=== PATIENT | female | born 1945 | race American Indian/Alaskan Native ===

== ENCOUNTER 2016-09-18 07:24 | Day surgery (SDC) | payer MEDICARE, OTHER ==
[~2016-09-18 07:24] MED LIST: Polymyxin B/Trimethoprim 10 ML Bottle EYERT SCH
[2016-09-18] MEDS: Ofloxacin 0.3% Ophth Soln 5 ML Bottle EYERT SCH ×3 (07:47→09:23)
[2016-09-18] MEDS: Brimonidine 0.2% Ophth Soln 5 ML Bottle EYERT SCH ×4 (07:51→09:23)
[2016-09-18] MEDS: Phenylephrine 2.5% Ophth Soln 2 ML Bot EYERT SCH ×5 (07:55→09:09)
--- NOTE | 2016-09-18 07:59 | PCM.PREANE ---
Preanesthetic Assessment - Procedure Proposed Procedure: right eye catqrqct extraction with IOL - Anesthesia/Transfusion/Family Hx Anesthesia History: Prior Anesthesia Without Reaction Type of Anesthesia Reaction: Unknown Family History of Anesthesia Reaction: No Transfusion History: No Prior Transfusion(s) Type of Transfusion Reactions: Reports: Unknown Intubation History: Unknown - Review of Systems General: No Symptoms Pulmonary: Shortness of Breath (COPD uses inhalers daily) Cardiovascular: Other (Hyperlipidemia, HTN) Gastrointestinal: No symptoms Neurological: No Symptoms Other: Reports: Diabetes - Physical Assessment NPO Status Date: 09/17/16 NPO Status Time: 23:00 O2 Sat by Pulse Oximetry: 94 Respiratory Rate: 16 Vital Signs: Last Vital Signs Temp 36.4 C 09/18/16 07:35 Pulse 92 09/18/16 07:35 Resp 16 09/18/16 07:35 BP 163/76 H 09/18/16 07:35 Pulse Ox 94 L 09/18/16 07:35 Height: 1.7 m Weight: 104.326 kg Mental Status: Alert & Oriented x3 Dentition: Reports: Partial (upper and lower ) Thyro-Mental Finger Breadths: 3 Mouth Opening Finger Breadths: 3 ROM/Head Extension: Full Lungs: Clear to auscultation, Normal respiratory effort Cardiovascular: Regular Rate, Regular Rhythm - Allergies Allergies/Adverse Reactions: Allergies Allergy/AdvReac Type Severity Reaction Status Date / Time adhesive tape Allergy Cannot Verified 09/17/16 15:44 Remember nitrofurantoin Allergy Cannot Verified 09/17/16 15:44 [From Macrobid] Remember Sulfa (Sulfonamide Allergy Cannot Verified 09/17/16 15:44 Antibiotics) Remember - Blood Blood Available: No Product(s) Available: None - Acknowledgements Anesthesia Type Planned: MAC Pt an Appropriate Candidate for the Planned Anesthesia: Yes Alternatives and Risks of Anesthesia Discussed w Pt/Guardian: Yes Pt/Guardian Understands and Agrees with Anesthesia Plan: Yes PreAnesthesia Questionnaire - SUBSTANCE USE Smoking Status *Q: Former Smoker (quit 2014) Second Hand Smoke Exposure: No Recreational Drug Use History: No - HOME MEDS Home Medications: Home Meds Enalapril Maleate [Vasotec] 20 mg PO DAILY 09/17/16 [History] Furosemide [Lasix] 40 mg PO DAILY 09/17/16 [History] Insulin Aspart [NovoLOG] 35 units SQ TID 09/17/16 [History] Insulin Detemir [Levemir] 80 units SQ BID 09/17/16 [History] amLODIPine [Norvasc] 5 mg PO DAILY 09/17/16 [History] atorvaSTATin [Lipitor] 10 mg PO BEDTIME 09/17/16 [History] diphenhydrAMINE [Benadryl] 25 mg PO DAILY 09/17/16 [History] - CURRENT (IN HOUSE) MEDS Current Meds: Current Medications Brimonidine Tartrate (Alphagan 0.2% Ophth Soln) 0 ml EYERT ASDIRECTED DELANEY Last Admin: 09/18/16 07:51 Dose: 1 drop Cefuroxime Sodium (Zinacef) 0 mg EYERT ASDIRECTED DELANEY Stop: 09/18/16 18:00 Lidocaine HCl (Xylocaine-Mpf 1%) 10 ml INJECT ASDIRECTED DELANEY Stop: 09/18/16 18:00 Ofloxacin (Ocuflox 0.3% Ophth Soln) 0 ml EYERT ASDIRECTED DELANEY Stop: 09/18/16 18:00 Last Admin: 09/18/16 07:47 Dose: 1 drop Phenylephrine HCl (Salo-Synephrine 2.5% Ophth Soln) 0 ml EYERT ASDIRECTED DELANEY Stop: 09/18/16 18:00 Pilocarpine HCl (Pilocar 4% Ophth Soln) 0 ml EYERT ASDIRECTED DELANEY Stop: 09/18/16 18:00 Tetracaine HCl (Tetracaine 0.5% Steri-Unit Nina) 0 ml EYERT ASDIRECTED DELANEY Stop: 09/18/16 18:00 Tropicamide (Mydriacyl 1% Ophth Soln) 0 ml EYERT ASDIRECTED DELANEY Stop: 09/18/16 18:00 Discontinued Medications Polymyxin/Trimethoprim Sulfate (Polytrim Ophth Soln) 0 ml EYERT ASDIRECTED DELANEY Stop: 09/18/16 18:00
[2016-09-18] MEDS: Lidocaine 1% PF 2 ML SDV INJECT SCH ×2 (08:06→09:14)
[2016-09-18] MEDS: Tetracaine HCl/PF 0.5% 4 ML Bottle EYERT SCH ×3 (08:06→09:15)
[2016-09-18] MEDS: Cefuroxime 10 MG/ML SYRINGE EYERT SCH ×2 (08:07→09:20)
[2016-09-18] MEDS: Pilocarpine 4% Ophth Soln 15 ML Bot EYERT SCH ×2 (08:08→09:23)
--- NOTE | 2016-09-18 09:31 | PCM48HPAN ---
Post Anesthesia Note - EVALUATION WITHIN 48HRS OF ANESTHETIC Vital Signs in Normal Range: Yes Patient Participated in Evaluation: Yes Respiratory Function Stable: Yes Airway Patent: Yes Cardiovascular Function Stable: Yes Hydration Status Stable: Yes Pain Control Satisfactory: Yes Nausea and Vomiting Control Satisfactory: Yes Mental Status Recovered: Yes
[2016-09-18 09:40] VITALS: BP 164/74
== END 2016-09-18 09:35 | disposition home or self-care (01) ==
LOC: JD.SDS 07:24 → MERGE 09:30 → JD.SDS 09:35
PROVIDERS: ATTEND Ophthalmology
DX: H26.9 Unspecified cataract (principal); I10 Essential (primary) hypertension; E78.00 Pure hypercholesterolemia, unspecified; E11.9 Type 2 diabetes mellitus without complications; Z79.4 Long term (current) use of insulin; Z79.899 Other long term (current) drug therapy; Z87.891 Personal history of nicotine dependence; Z98.890 Other specified postprocedural states
CPT/HCPCS: 66984; A9270; J0697; C1780

== ENCOUNTER 2016-10-16 07:12 | Day surgery (SDC) | payer MEDICARE, OTHER ==
[~2016-10-16 07:12] MED LIST changes: +Cefuroxime 10 MG/ML SYRINGE EYELF SCH; +Lidocaine 1% PF 2 ML SDV INJECT SCH; +Pilocarpine 4% Ophth Soln 15 ML Bot EYELF SCH; +Polymyxin B/Trimethoprim 10 ML Bottle EYELF SCH; -Polymyxin B/Trimethoprim 10 ML Bottle EYERT SCH
[2016-10-16] MEDS: Ofloxacin 0.3% Ophth Soln 5 ML Bottle EYELF SCH ×3 (07:20→08:31)
[2016-10-16] MEDS: Brimonidine 0.2% Ophth Soln 5 ML Bottle EYELF SCH ×3 (07:23→08:31)
[2016-10-16] MEDS: Phenylephrine 2.5% Ophth Soln 2 ML Bot EYELF SCH ×5 (07:27→08:07)
--- NOTE | 2016-10-16 07:34 | PCM.PREANE ---
Preanesthetic Assessment - Anesthesia/Transfusion/Family Hx Anesthesia History: Prior Anesthesia Without Reaction Family History of Anesthesia Reaction: No Transfusion History: No Prior Transfusion(s) Type of Transfusion Reactions: Reports: Unknown Intubation History: Unknown - Review of Systems General: No Symptoms Pulmonary: No Symptoms, Cough (pt states has had a cold, feels it is getting better finally) Cardiovascular: No Symptoms Gastrointestinal: No symptoms Neurological: No Symptoms Other: Reports: None - Physical Assessment NPO Status Date: 10/15/16 NPO Status Time: 21:00 Pulse: 99 O2 Sat by Pulse Oximetry: 96 Respiratory Rate: 16 Blood Pressure: 159/63 Temperature: 97.4 C Height: 1.7 m Weight: 104.326 kg ASA Class: 2 Mental Status: Alert & Oriented x3 Airway Class: Mallampati = 2 Dentition: Reports: Normal Dentition, Partial (upper and lower partial) Thyro-Mental Finger Breadths: 2 Mouth Opening Finger Breadths: 3 ROM/Head Extension: Full Lungs: Clear to auscultation, Normal respiratory effort Cardiovascular: Regular Rate, Regular Rhythm - Allergies Allergies/Adverse Reactions: Allergies Allergy/AdvReac Type Severity Reaction Status Date / Time adhesive tape Allergy Cannot Verified 10/15/16 13:54 Remember nitrofurantoin Allergy Cannot Verified 10/15/16 13:54 [From Macrobid] Remember Sulfa (Sulfonamide Allergy Cannot Verified 10/15/16 13:54 Antibiotics) Remember - Anesthesia Plan Pre-Op Medication Ordered: None - Acknowledgements Anesthesia Type Planned: MAC Pt an Appropriate Candidate for the Planned Anesthesia: Yes Alternatives and Risks of Anesthesia Discussed w Pt/Guardian: Yes Pt/Guardian Understands and Agrees with Anesthesia Plan: Yes PreAnesthesia Questionnaire HEENT History: Reports: None Cardiovascular History: Reports: High Cholesterol, Hypertension Respiratory History: Reports: None Gastrointestinal History: Reports: None Genitourinary History: Reports: None [employer] History: Reports: None Musculoskeletal History: Reports: None Neurological History: Reports: None Psychiatric History: Reports: None Endocrine/Metabolic History: Reports: Diabetes, Type I (BS 139 @ 0700) Hematologic History: Reports: None Immunologic History: Reports: None Oncologic (Cancer) History: Reports: None Dermatologic History: Reports: None - Past Surgical History Head Surgeries/Procedures: Reports: None HEENT Surgical History: Reports: None Cardiovascular Surgical History: Reports: None Respiratory Surgical History: Reports: None GI Surgical History: Reports: None, Cholecystectomy (no anesthetic complications ) Female Surgical History: Reports: None Male Surgical History: Reports: None Endocrine Surgical History: Reports: None Neurological Surgical History: Reports: None Musculoskeletal Surgical History: Reports: None Oncologic Surgical History: Reports: None Dermatological Surgical History: Reports: None - Past Imaging History Past Imaging History: Reports: Mammogram - SUBSTANCE USE Smoking Status *Q: Former Smoker (quit 2014) Second Hand Smoke Exposure: No Recreational Drug Use History: No - HOME MEDS Home Medications: Home Meds Enalapril Maleate [Vasotec] 20 mg PO DAILY 09/17/16 [History] Furosemide [Lasix] 40 mg PO DAILY 09/17/16 [History] Insulin Aspart [NovoLOG] 35 units SQ TID 09/17/16 [History] Insulin Detemir [Levemir] 80 units SQ BID 09/17/16 [History] amLODIPine [Norvasc] 5 mg PO DAILY 09/17/16 [History] atorvaSTATin [Lipitor] 10 mg PO BEDTIME 09/17/16 [History] diphenhydrAMINE [Benadryl] 25 mg PO DAILY 09/17/16 [History] Moxifloxacin [Vigamox 0.5% Ophth Soln] 1 drop EYEBOTH ASDIRECTED 10/15/16 [ History] - CURRENT (IN HOUSE) MEDS Current Meds: Current Medications Brimonidine Tartrate (Alphagan 0.2% Ophth Soln) 0 ml EYELF TID DELANEY Stop: 10/16/16 16:00 Last Admin: 10/16/16 07:23 Dose: 1 drop Cefuroxime Sodium (Zinacef) 0 mg EYELF ASDIRECTED DELANEY Stop: 10/16/16 18:00 Lidocaine HCl (Xylocaine-Mpf 1%) 10 ml INJECT ASDIRECTED DELANEY Stop: 10/16/16 18:00 Ofloxacin (Ocuflox 0.3% Ophth Soln) 0 ml EYELF ASDIRECTED DELANEY Stop: 10/16/16 16:00 Last Admin: 10/16/16 07:20 Dose: 1 drop Phenylephrine HCl (Salo-Synephrine 2.5% Ophth Soln) 0 ml EYELF ASDIRECTED DELANEY Stop: 10/16/16 16:00 Last Admin: 10/16/16 07:27 Dose: 1 drop Pilocarpine HCl (Pilocar 4% Ophth Soln) 0 ml EYELF ASDIRECTED DELANEY Stop: 10/16/16 16:00 Tetracaine HCl (Tetracaine 0.5% Steri-Unit Nina) 0 ml EYELF ASDIRECTED DELANEY Stop: 10/16/16 16:00 Tropicamide (Mydriacyl 1% Ophth Soln) 0 ml EYELF ASDIRECTED DELANEY Stop: 10/16/16 16:00
[2016-10-16] MEDS: Tetracaine HCl/PF 0.5% 4 ML Bottle EYELF SCH ×2 (08:03→08:19)
[2016-10-16 08:43] VITALS: BP 161/70
== END 2016-10-16 08:39 | disposition home or self-care (01) ==
LOC: JD.SDS 07:12
PROVIDERS: ATTEND Ophthalmology
DX: H26.9 Unspecified cataract (principal); H21.81 Floppy iris syndrome; H21.42 Pupillary membranes, left eye; I10 Essential (primary) hypertension; E78.00 Pure hypercholesterolemia, unspecified; E11.9 Type 2 diabetes mellitus without complications; Z88.2 Allergy status to sulfonamides; Z88.8 Allergy status to other drugs, medicaments and biological substances; Z91.09 Other allergy status, other than to drugs and biological substances; Z79.4 Long term (current) use of insulin; Z79.899 Other long term (current) drug therapy; Z98.890 Other specified postprocedural states; Z87.891 Personal history of nicotine dependence
CPT/HCPCS: 66984; C1780; J0697; A9270-GY

== ENCOUNTER 2020-11-17 20:44 | Emergency (ER) | payer MEDICARE, OTHER ==
[2020-11-17] MEDS ORDERED: Sodium Chloride 0.9% 10 ML Syringe FLUSH PRN (21:08)
[2020-11-17] MEDS ORDERED: Ondansetron 4 MG/2 ML SDV IVPUSH ONE (21:08)
[2020-11-17] MEDS ORDERED: methylPREDNISolone Sodium Succinate 125 MG/2 ML SDV IVPUSH PRN (21:09)
[2020-11-17] MEDS ORDERED: EPINEPHrine 1 MG/ML SDV IM PRN (21:09)
[2020-11-17] MEDS ORDERED: Famotidine 20 MG/2 ML SDV IVPUSH PRN (21:09)
[2020-11-17] MEDS ORDERED: diphenhydrAMINE 50 MG/ML SDV IVPUSH PRN (21:09)
[2020-11-17] MEDS ORDERED: Sodium Chloride 0.9% 10 ML Syringe FLUSH SCH (21:15)
--- NOTE | 2020-11-17 22:33 | EDM.PDOC ---
ED HPI GENERAL MEDICAL PROBLEM - General Chief Complaint: Gastrointestinal Problem Stated Complaint: [facility] Time Seen by Provider: 11/17/20 20:50 Source of Information: Reports: Patient, EMS History Limitations: Reports: No Limitations - History of Present Illness INITIAL COMMENTS - FREE TEXT/NARRATIVE: The patient presents by [facility] for nausea, vomiting, diarrhea, cough and shortness of breath. She has COVID 19. She was diagnosed today. She has been having symptoms for a few days. She did get the [place] vaccine earlier in the year. She has no chest pain or abdominal pain. She does have heart disease and hypertension. Onset: Gradual Duration: Day(s): Severity: Moderate Improves with: Reports: None Worsens with: Reports: None Associated Symptoms: Reports: Cough, Fever/Chills, Nausea/Vomiting, Shortness of Breath. Denies: Chest Pain, Headaches Treatments GLASS FITTER: Reports: Isotonic Fluid, IV/IO Other Treatments GLASS FITTER: 600ml NS given by EMS GLASS FITTER - Related Data Allergies Allergy/AdvReac Type Severity Reaction Status Date / Time adhesive tape Allergy Cannot Verified 11/17/20 20:53 Remember nitrofurantoin Allergy Cannot Verified 11/17/20 20:53 [From Macrobid] Remember Sulfa (Sulfonamide Allergy Cannot Verified 11/17/20 20:53 Antibiotics) Remember Home Meds: Home Meds Enalapril Maleate [Vasotec] 20 mg PO DAILY 09/17/16 [History] Furosemide [Lasix] 40 mg PO DAILY 09/17/16 [History] Insulin Aspart [NovoLOG] 35 units SQ TID 09/17/16 [History] Insulin Detemir [Levemir] 80 units SQ BID 09/17/16 [History] amLODIPine [Norvasc] 5 mg PO DAILY 09/17/16 [History] atorvaSTATin [Lipitor] 10 mg PO BEDTIME 09/17/16 [History] diphenhydrAMINE [Benadryl] 25 mg PO BEDTIME 09/17/16 [History] Ondansetron [Zofran ODT] 4 mg PO Q6H PRN #20 tab.dis 11/17/20 [Rx] Past Medical History HEENT History: Reports: None Cardiovascular History: Reports: High Cholesterol, Hypertension Respiratory History: Reports: None Gastrointestinal History: Reports: None Genitourinary History: Reports: None HOME SUPERVISOR History: Reports: Musculoskeletal History: Reports: None Neurological History: Reports: None Psychiatric History: Reports: None Endocrine/Metabolic History: Reports: Diabetes, Type I, Obesity/BMI 30+ Hematologic History: Reports: None Immunologic History: Reports: None Oncologic (Cancer) History: Reports: None Dermatologic History: Reports: None - Infectious Disease History Infectious Disease History: Reports: C-Difficile, Mumps, Novel Coronavirus, Shingles - Past Surgical History GI Surgical History: Reports: Cholecystectomy Female Surgical History: Reports: None Neurological Surgical History: Reports: None - Past Imaging History Past Imaging History: Reports: Mammogram Social & Family History - Tobacco Use Tobacco Use Status *Q: Former Tobacco User Used Tobacco, but Quit: Yes Month/Year Tobacco Last Used: 04/2014 - Caffeine Use Caffeine Use: Reports: None - Recreational Drug Use Recreational Drug Use: No ED ROS GENERAL - Review of Systems Review Of Systems: See Below Constitutional: Reports: Fever, Chills, Malaise, Weakness, Fatigue HEENT: Reports: No Symptoms Respiratory: Reports: Shortness of Breath, Cough Cardiovascular: Reports: No Symptoms Endocrine: Reports: No Symptoms GI/Abdominal: Reports: Diarrhea, Nausea, Vomiting. Denies: Abdominal Pain ED EXAM, GI/ABD - Physical Exam Exam: See Below Exam Limited By: No Limitations General Appearance: Alert, No Apparent Distress Ears: Normal External Exam Nose: Normal Inspection Head: Atraumatic, Normocephalic Neck: Normal Inspection Respiratory/Chest: No Respiratory Distress, Lungs Clear, Normal Breath Sounds Cardiovascular: Regular Rate, Rhythm, No Edema, No Murmur GI/Abdominal Exam: Soft, Non-Tender, No Organomegaly, No Mass Course - Vital Signs Last Recorded V/S: Last Vital Signs Temp 98.8 F 11/17/20 22:00 Pulse 88 11/17/20 22:37 Resp 31 H 11/17/20 22:37 BP 149/60 H 11/17/20 22:37 Pulse Ox 91 L 11/17/20 22:37 - Orders/Labs/Meds Orders: Active Orders 24 hr Category Date Time Status Cardiac Monitoring [RC] . DIRECTED Care 11/17/20 21:08 Active Oxygen Therapy [RC] PRN Care 11/17/20 21:09 Active Peripheral IV Care [RC] . DIRECTED Care 11/17/20 21:09 Active Vital Signs [RC] Q15M Care 11/17/20 21:09 Active Chest 1V Frontal [CR] Stat Exams 11/17/20 21:09 Taken EPINEPHrine [Adrenalin] Med 11/17/20 21:09 Active 0.3 mg IM ONETIME PRN Famotidine [Pepcid] Med 11/17/20 21:09 Active 20 mg IVPUSH ONETIME PRN Sodium Chloride 0.9% [Saline Flush] Med 11/17/20 21:08 Active 10 ml FLUSH ASDIRECTED PRN Sodium Chloride 0.9% [Saline Flush] Med 11/17/20 21:15 Active 30 ml FLUSH ASDIRECTED diphenhydrAMINE [Benadryl] Med 11/17/20 21:09 Active 50 mg IVPUSH ONETIME PRN methylPREDNISolone Sod Succ [Solu-MEDROL] Med 11/17/20 21:09 Active 125 mg IVPUSH ONETIME PRN ED Antiemetic Medication Reflex [OM.PC] Stat Oth 11/17/20 21:09 Ordered Peripheral IV Insertion Adult [OM.PC] Stat Oth 11/17/20 21:08 Ordered Medication Orders Diphenhydramine HCl (Diphenhydramine 50 Mg/Ml Sdv) 50 mg IVPUSH ONETIME PRN PRN Reason: hypersensitivity reaction Epinephrine HCl (Epinephrine 1 Mg/Ml Sdv) 0.3 mg IM ONETIME PRN PRN Reason: hypersensitivity reaction Famotidine (Famotidine 20 Mg/2 Ml Sdv) 20 mg IVPUSH ONETIME PRN PRN Reason: hypersensitivity reaction Methylprednisolone Sodium Succinate (Methylprednisolone Sodium Succinate 125 Mg/2 Ml Sdv) 125 mg IVPUSH ONETIME PRN PRN Reason: hypersensitivity reaction Sodium Chloride (Sodium Chloride 0.9% 10 Ml Syringe) 10 ml FLUSH ASDIRECTED PRN PRN Reason: Keep Vein Open Sodium Chloride (Sodium Chloride 0.9% 10 Ml Syringe) 30 ml FLUSH ASDIRECTED DELANEY Labs: Laboratory Tests 11/17/20 11/17/20 Range/Units 21:20 21:20 WBC 6.10 (3.98-10.04) K/mm3 RBC 4.27 (3.98-5.22) M/mm3 Hgb 13.1 (11.2-15.7) gm/dl Hct 39.9 (34.1-44.9) % MCV 93.4 (79.4-94.8) fl MCH 30.7 (25.6-32.2) pg MCHC 32.8 (32.2-35.5) g/dl RDW Std Deviation 45.1 (36.4-46.3) fL Plt Count 136 L (182-369) K/mm3 MPV 10.3 (9.4-12.3) fl Neut % (Auto) 73.6 H (34.0-71.1) % Lymph % (Auto) 15.6 L (19.3-51.7) % Maury % (Auto) 9.8 (4.7-12.5) % Eos % (Auto) 0.8 (0.7-5.8) Baso % (Auto) 0.2 (0.1-1.2) % Neut # (Auto) 4.49 (1.56-6.13) K/mm3 Lymph # (Auto) 0.95 L (1.18-3.74) K/mm3 Maury # (Auto) 0.60 H (0.24-0.36) K/mm3 Eos # (Auto) 0.05 (0.04-0.36) K/mm3 Baso # (Auto) 0.01 (0.01-0.08) K/mm3 Sodium 140 (136-145) mEq/L Potassium 4.7 (3.5-5.1) mEq/L Chloride 106 (98-107) mEq/L Carbon Dioxide 22 (21-32) mEq/L Anion Gap 16.7 H (5-15) BUN 36 H (7-18) mg/dL Creatinine 1.6 H (0.55-1.02) mg/dL Est Cr Clr Drug Dosing 28.88 mL/min Estimated GFR (MDRD) 32 (>60) mL/min BUN/Creatinine Ratio 22.5 H (14-18) Glucose 105 H (70-99) mg/dL Calcium 8.3 L (8.5-10.1) mg/dL Total Bilirubin 0.5 (0.2-1.0) mg/dL AST 25 (15-37) U/L ALT 33 (14-59) U/L Alkaline Phosphatase 89 (46-116) U/L C-Reactive Protein 4.6 H* (<1.0) mg/dL Total Protein 6.9 (6.4-8.2) g/dl Albumin 2.9 L (3.4-5.0) g/dl Globulin 4.0 gm/dL Albumin/Globulin Ratio 0.7 L (1-2) Meds: Medications Generic Name Dose Route Start Last Admin Trade Name Miguelq PRN Reason Stop Dose Admin Diphenhydramine HCl 50 mg 11/17/20 21:09 Diphenhydramine 50 Mg/Ml Sdv IVPUSH ONETIME PRN hypersensitivity reaction Epinephrine HCl 0.3 mg 11/17/20 21:09 Epinephrine 1 Mg/Ml Sdv IM ONETIME PRN hypersensitivity reaction Famotidine 20 mg 11/17/20 21:09 Famotidine 20 Mg/2 Ml Sdv IVPUSH ONETIME PRN hypersensitivity reaction Methylprednisolone Sodium Succinate 125 mg 11/17/20 21:09 Methylprednisolone Sodium Succinate 125 Mg/2 Ml Sdv IVPUSH ONETIME PRN hypersensitivity reaction Sodium Chloride 10 ml 11/17/20 21:08 Sodium Chloride 0.9% 10 Ml Syringe FLUSH ASDIRECTED PRN Keep Vein Open Sodium Chloride 30 ml 11/17/20 21:15 Sodium Chloride 0.9% 10 Ml Syringe FLUSH ASDIRECTED DELANEY Discontinued Medications Generic Name Dose Route Start Last Admin Trade Name Freq PRN Reason Stop Dose Admin CASIRIVIMAB/IMDEVIMAB 10 ml/ 110 mls @ 220 mls/hr 11/17/20 21:09 11/17/20 21:59 Sodium Chloride IV 11/17/20 21:38 220 mls/hr ONETIME ONE Administration Ondansetron HCl 4 mg 11/17/20 21:08 11/17/20 21:58 Ondansetron 4 Mg/2 Ml Sdv IVPUSH 11/17/20 21:09 4 mg ONETIME ONE Administration - Re-Assessments/Exams Free Text/Narrative Re-Assessment/Exam: 11/17/20 23:08 I ordered an IV saline lock, labs, zofran 4mg IV, CXR and REGEN-COV. Her CXR looks good. Her CBC looks good. Her anion gap was elevated at 16.7. Her creatinine was elevated at 1.6. Her CRP was elevated at 4.6. Her oxygen saturations were above 90% here. I will discharge her home with some zofran. Departure - Departure Time of Disposition: 23:10 Disposition: Home, Self-Care 01 Condition: Good Clinical Impression: COVID Nausea & vomiting Qualifiers: Vomiting type: unspecified Vomiting Intractability: non-intractable Qualified Code(s): R11.2 - Nausea with vomiting, unspecified - Discharge Information *PRESCRIPTION DRUG MONITORING PROGRAM REVIEWED*: Not Applicable *COPY OF PRESCRIPTION DRUG MONITORING REPORT IN PATIENT INDRA: Not Applicable Prescriptions: Ondansetron [Zofran ODT] 4 mg PO Q6H PRN #20 tab.dis PRN Reason: Nausea\vomiting Referrals: Ema Howard STAGE BUILDER [Primary Care Provider] - Forms: ED Department Discharge Additional Instructions: Drink plenty of fluids. Take the zofran every 6 hours as needed for nausea and vomiting. Take tylenol or motrin as needed for pain and fever. Please return if you are worse. Sepsis Event Note (ED) - Evaluation Sepsis Screening Result: Possible Sepsis Risk - Focused Exam Vital Signs: Vital Signs Temp Pulse Resp BP Pulse Ox 11/17/20 22:37 88 31 H 149/60 H 91 L 11/17/20 22:16 91 20 154/58 H 92 L 11/17/20 22:00 98.8 F 91 19 151/73 H 93 L 11/17/20 20:49 98.4 F 95 16 191/62 H 93 L - My Orders Last 24 Hours: My Active Orders 11/17/20 21:08 Cardiac Monitoring [RC] . DIRECTED Sodium Chloride 0.9% [Saline Flush] 10 ml FLUSH ASDIRECTED PRN Peripheral IV Insertion Adult [OM.PC] Stat 11/17/20 21:09 Oxygen Therapy [RC] PRN Peripheral IV Care [RC] . DIRECTED Vital Signs [RC] Q15M Chest 1V Frontal [CR] Stat EPINEPHrine [Adrenalin] 0.3 mg IM ONETIME PRN Famotidine [Pepcid] 20 mg IVPUSH ONETIME PRN diphenhydrAMINE [Benadryl] 50 mg IVPUSH ONETIME PRN methylPREDNISolone Sod Succ [Solu-MEDROL] 125 mg IVPUSH ONETIME PRN ED Antiemetic Medication Reflex [OM.PC] Stat 11/17/20 21:15 Sodium Chloride 0.9% [Saline Flush] 30 ml FLUSH ASDIRECTED - Assessment/Plan Last 24 Hours: My Active Orders 11/17/20 21:08 Cardiac Monitoring [RC] . DIRECTED Sodium Chloride 0.9% [Saline Flush] 10 ml FLUSH ASDIRECTED PRN Peripheral IV Insertion Adult [OM.PC] Stat 11/17/20 21:09 Oxygen Therapy [RC] PRN Peripheral IV Care [RC] . DIRECTED Vital Signs [RC] Q15M Chest 1V Frontal [CR] Stat EPINEPHrine [Adrenalin] 0.3 mg IM ONETIME PRN Famotidine [Pepcid] 20 mg IVPUSH ONETIME PRN diphenhydrAMINE [Benadryl] 50 mg IVPUSH ONETIME PRN methylPREDNISolone Sod Succ [Solu-MEDROL] 125 mg IVPUSH ONETIME PRN ED Antiemetic Medication Reflex [OM.PC] Stat 11/17/20 21:15 Sodium Chloride 0.9% [Saline Flush] 30 ml FLUSH ASDIRECTED
[2020-11-17 23:10] VITALS: BP 150/55; PULSE 91
--- NOTE | 2020-11-18 07:00 | CR ---
Chest: Frontal view of the chest was obtained. Comparison: No prior chest imaging is available. Patchy increased density is seen within the left lung base. Lungs otherwise are clear. Heart size and mediastinum appear within normal limits. No acute osseous abnormality is appreciated. Impression: 1. Findings suspicious for mild increased density within the left lung base. Findings raise the possibility of pneumonia. Please correlate with patient's symptoms. Diagnostic code #3
== END 2020-11-17 23:40 | disposition home or self-care (01) ==
LOC: JD.ED 20:44
DX: R11.2 Nausea with vomiting, unspecified (principal); U07.1 COVID-19; E78.00 Pure hypercholesterolemia, unspecified; I10 Essential (primary) hypertension; E10.9 Type 1 diabetes mellitus without complications; E66.9 Obesity, unspecified; Z68.41 Body mass index [BMI] 40.0-44.9, adult; Z87.891 Personal history of nicotine dependence; Z91.048 Other nonmedicinal substance allergy status; Z88.2 Allergy status to sulfonamides; Z88.1 Allergy status to other antibiotic agents
CPT/HCPCS: 36415; 71045; 80053; 85025; 86140; 96374; 99285; J2405; M0243; Q0243; 99284